=== PATIENT | female | born 1960 | race Caucasian/White ===

== ENCOUNTER 2016-06-11 15:03 | Emergency (ER) | payer SELFPAY ==
--- NOTE | ~2016-06-11 | ER ---
[facility] AGE: 55 Y [address] ROOM: [place] [address] LOCATION: [facility] ADMIT DATE: 06/11/2016 ER/Outpatient Report DISCHARGE DATE: 06/11/2016 FAMILY PHYSICIAN: PHYSICIAN, NO ATTENDING PHYSICIAN: Julius Yang Time of Arrival: 1503 hours. Time of Evaluation: 1525 hours. CHIEF COMPLAINT: Left flank pain. HISTORY OF PRESENT ILLNESS: This is a 55-year-old female who presents to the ER. She states she has been having some flank pain on the left side for approximately 7 days. She states that her pain waxes and wanes in intensity. The patient states that her pain is sharp and stabbing in nature. She knows of no injury to the back. She states she has no troubles with urination. No troubles with bowel movements. She states she has never had any pain like this before. She has not taken anything for her pain. ALLERGIES: NO KNOWN ALLERGIES. MEDICATIONS: None. PAST MEDICAL HISTORY: Hysterectomy, she has had a bone graft to the right foot, right knee reconstruction. SOCIAL HISTORY: She smokes 1 pack a day for the last 37 years and she has not use drug or alcohol for "years." REVIEW OF SYSTEMS: A 10-point review of system was completed and was negative with the exception of those discussed in the HPI. PHYSICAL EXAMINATION: VITAL SIGNS: Height 5 feet 1 inch, stated; weight 87 kilograms, taken; blood pressure is 126/74; pulse 79; respirations 16; temperature 99.2 degrees tympanically; saturations 99% on room air. Wilsey Coma Score is 15. GENERAL: Alert, calm, well-developed female, in mild distress. HEENT: Head normocephalic. Eyes; pupils are equal and reactive to light. PATIENT'S NAME: [facility] AGE: 55 Y [address] ROOM: [place] [address] LOCATION: [facility] ADMIT DATE: 06/11/2016 ER/Outpatient Report DISCHARGE DATE: 06/11/2016 FAMILY PHYSICIAN: PHYSICIAN, NO ATTENDING PHYSICIAN: Julius Yang She does display moist mucous membranes. She is missing several of her teeth. LUNGS: Clear to auscultation bilaterally. No wheezes or crackles. Normal respiratory effort. HEART: Regular rate and rhythm. No lifts, thrills, or murmurs. ABDOMEN: Soft. She has some mild tenderness with palpation on the left side of her abdomen. She does have some left-sided CVA tenderness. She has good bowel sounds throughout. No masses were palpated. EXTREMITIES: No clubbing, cyanosis, or edema. Has full range of motion of all limbs. LABORATORY DATA AND X-RAYS: CBC; white count is 12.3, hemoglobin 14.4, platelets 322, ANC is 7.5. CMS; chloride is 111, otherwise, unremarkable. TSH is 0.598. Urinalysis was negative for any infection. CT scan was done per stone protocol and does show a probable hemorrhagic left kidney cyst. They recommend followup with Urology and a potential followup with the renal protocol MRI to rule out cystic cancer. IMPRESSION: Left flank pain with left kidney cyst. ASSESSMENT AND PLAN: I did discuss the patient's care with Dr. Yang. We did start an IV here in the emergency room. We did give her a liter of fluids along with 2 mg of morphine and a total of 30 mg of Toradol for her pain. She did tolerate this well. We will dismiss her to home with a prescription for [place] to use as directed. She needs to continue to push fluids. Monitor symptoms. Did give her business cards to follow up with primary care physician and Urology this week. The patient understands and agrees with care. MELANY SPRING PA-C FOR MD DAVID JIMENEZ/kennedy /[id number] d: 06/11/16 2252 t: 06/15/16 0618, OUTPATIENT REPORT
[~2016-06-11 15:03] MED LIST: ATIVAN 0.5MG0.5 MG PO; DESYREL100 MG PO; DOXYCYCLINE100 MG PO; NEURONTIN100 MG PO; NICODERM/HABITR21 MG TRANS; TRIACET 0.1% 8080 GM TOP; TYLENOL325 MG PO; ULTRAM50 MG PO
[2016-06-11 15:36] LABS: BILIRUBIN URINE NEGATIVE (NEGATIVE); BLOOD URINE NEGATIVE /UL (NEGATIVE); COLOR URINE YELLOW (YELLOW); GLUCOSE URINE NEGATIVE (NEGATIVE); KETONE URINE NEGATIVE (NEGATIVE); LEUKOCYTES URINE 25 /UL (NEGATIVE); NITRITE URINE NEGATIVE (NEGATIVE); PROTEIN URINE NEGATIVE (NEGATIVE); TURBIDITY URINE CLEAR (CLEAR); UROBILINOGEN URINE NORMAL (NORMAL)
[2016-06-11 15:41] LABS: BASOPHIL # 0.1 K/uL (0.0-0.2); BASOPHIL % 0.7 %; EOSINOPHIL # 0.2 K/uL (0.0-0.5); EOSINOPHIL % 1.8 %; HEMATOCRIT 43.4 % (33.0-46.0); HEMOGLOBIN 14.4 g/dL (10.0-15.0); IMMATURE GRANULOCYTE # 0.1 K/uL (0.0-0.3); IMMATURE GRANULOCYTE % 0.4 %; LYMPHOCYTE # 3.7 K/uL (0.8-4.0); LYMPHOCYTE % 30.5 %; MCH 29.4 pg (27.0-34.0); MCHC 33.2 gm/dL (32.0-36.5); MCV 88.6 fl (83.0-98.0); MONOCYTE # 0.7 K/uL (0.0-1.0); MONOCYTE % 5.8 %; MPV 10.4 fl (9.4-12.4); NEUTROPHIL # (ANC) 7.5 K/uL (1.8-7.8); NEUTROPHIL % 60.8 %; NRBC % 0 /100WBC (0-0.00); PLATELET COUNT 322 K/uL (150-450); RDW-CV 14.3 % (11.9-14.6); WBC 12.3 K/uL (4.0-11.0)
[2016-06-11 15:44] LABS: RBC URINE NEGATIVE #/HPF (NEGATIVE); WBC URINE 0-2 #/HPF (NEGATIVE)
[2016-06-11 15:45] LABS: BACTERIA URINE RARE (NEGATIVE); EPITHELIAL URINE 0-2 #/HPF (NEGATIVE)
[2016-06-11 15:59] LABS: ALBUMIN 3.6 gm/dL (3.5-5.0); ALK PHOS 73 IU/L (33-138); ALT 17 IU/L (12-78); AST 10 IU/L (10-40); BLOOD UREA NITROGEN 10 mg/dL (6-24); CALCIUM 8.6 mg/dL (8.5-10.5); CHLORIDE 111 mMol/L (96-110); CO2 27 mMol/L (22-32); CREATININE 0.8 mg/dL (0.5-1.1); ESTIMATED GFR (MDRD EQUATION) > 60; SODIUM 145 mMol/L (135-145); TOTAL BILIRUBIN 0.1 mg/dL (0.0-1.5); TOTAL PROTEIN 6.2 g/dL (6.0-8.4)
== END 2016-06-11 17:10 | disposition disaster alternative care site (69) ==
LOC: GMED 15:03
PROVIDERS: Physician Assistant Medical
DX: N28.1 Cyst of kidney, acquired (principal); F17.210 Nicotine dependence, cigarettes, uncomplicated; Z90.710 Acquired absence of both cervix and uterus
CPT/HCPCS: J1885; J2270; J2405; J7030

== ENCOUNTER → 2016-07-20 | Outpatient (CLI) | payer MEDICARE | END | disposition disaster alternative care site (69) | LOC: GRAD 06-19 08:00 | DX: N28.89 Other specified disorders of kidney and ureter (principal) ==

== ENCOUNTER 2016-10-19 09:59 | Emergency (ER) | payer MEDICARE ==
--- NOTE | ~2016-10-19 | ER ---
PATIENT'S NAME: TANJA MCCLURE [facility] AGE: 56 Y [address] ROOM: [place] [address] LOCATION: [facility] ADMIT DATE: 10/19/2016 ER/Outpatient Report DISCHARGE DATE: 10/19/2016 FAMILY PHYSICIAN: Tomás Walter MD ATTENDING PHYSICIAN: González Ortiz CHIEF COMPLAINT: Back pain after a fall. HISTORY OF PRESENT ILLNESS: Ms. Mcclure presents for evaluation of back pain. She states that she fell yesterday and had a little divot in the ground causing her to fall. She landed on some dirt. Since then, she has been having more pain in her back. She has a history of back surgery and does not know if there is any hardware in there. The pain is located just on the left paraspinal region and radiates laterally towards the hip, but there is no pain going down her leg. She has not really done anything to try to make this better other than take some over- the-counter anti-inflammatories. PAST MEDICAL HISTORY: Documented on the record and reviewed by me. SOCIAL HISTORY: Documented on the record and reviewed by me. MEDICATIONS: Documented on the record and reviewed by me. ALLERGIES: DOCUMENTED ON THE RECORD AND REVIEWED BY ME. REVIEW OF SYSTEMS: All systems reviewed and negative except as noted in the HPI. PHYSICAL EXAMINATION: VITAL SIGNS: Blood pressure 132/93, pulse 91, respiratory rate is 20, temperature 97.8, and SpO2 is 100% on room air. Pain 7/10. GENERAL: An age appropriate female, sitting upright on exam table. Mild pain, no apparent distress. NEUROLOGIC: Awake and alert. GCS is 15. No focal deficits. No asymmetry. No weakness of the lower extremities. No paresthesias or sensory deficits in the lower extremities. She has normal sensation to the groin bilateral. BACK: Normal to inspection and palpation. No CVA tenderness. CHEST/HEART: Regular rate and rhythm with no murmurs. LUNGS: Clear to auscultation bilaterally. No rhonchi, wheezes, or rales. PATIENT'S NAME: TANJA MCCLURE [facility] AGE: 56 Y [address] ROOM: [place] [address] LOCATION: ED ADMIT DATE: 10/19/2016 ER/Outpatient Report DISCHARGE DATE: 10/19/2016 FAMILY PHYSICIAN: Tomás Walter MD ATTENDING PHYSICIAN: González Ortiz ABDOMEN: Soft, nontender, and nondistended. No rebound or guarding. EXTREMITIES: Warm, well formed, well perfused. Straight leg raise test on the left does slightly exacerbate the back pain, but it does not radiate below the gluteal fold. SKIN: Clean, dry, and intact. No rashes. LABORATORY DATA AND X-RAYS: Plain films of the back were obtained. There is no hardware. Bones appear in good alignment per my review, Radiology opinion is pending. IMPRESSION: Acute musculoskeletal low back pain with likely muscle spasm. EMERGENCY DEPARTMENT COURSE: The patient was seen and evaluated as above. Based on presentation and symptoms, I do not think the patient has cauda equina. Not consistent with epidural abscess or other infectious process. The patient does have some components of sciatica, but the lack of radiculopathy makes this is unlikely. We will treat her with some Valium and have her follow up with her primary care physician as needed. Return immediately if there are any changes in bowel or bladder habits, numbness, tingling, or weakness of the lower extremities. All questions were answered. The patient was discharged in good condition. MD ANA MATHEW/barbaral /[id number] d: t: 10/19/161958, OUTPATIENT REPORT
== END 2016-10-19 11:07 | disposition disaster alternative care site (69) ==
LOC: GMED 09:59
DX: M54.5 Low back pain (principal); F17.210 Nicotine dependence, cigarettes, uncomplicated; Z98.890 Other specified postprocedural states